=== PATIENT | female | born 1985 | race Caucasian/White ===

== ENCOUNTER 2023-01-07 08:02 | Outpatient (CLI) | payer OTHER, SELFPAY ==
[2023-01-07 13:06] LABS: Cholesterol* 133 mg/dL (90-199); Glucose* 86 mg/dL (60-115); Triglycerides* 108 mg/dL (40-149)
[2023-01-07 13:07] LABS: HDL Cholesterol* 77 mg/dL (>=50); LDL Cholesterol Calculated 34 mg/dL (<100)
== END 2023-01-07 08:03 | disposition home or self-care (01) ==
LOC: LKVREF 08:03
PROVIDERS: PCP Family Medicine; Visit Provider Physician Assistant
DX: Z13.6 Encounter for screening for cardiovascular disorders (principal); Z13.1 Encounter for screening for diabetes mellitus
CPT/HCPCS: 80061; 82947

== ENCOUNTER 2024-01-22 22:44 | Outpatient (REF) | payer OTHER, SELFPAY ==
[2024-01-23 02:27] LABS: Cholesterol* 163 mg/dL (90-199); Iron* 114 ug/dL (37-170); Magnesium* 2.1 mg/dL (1.5-2.6); Triglycerides* 129 mg/dL (40-149)
[2024-01-23 02:28] LABS: HDL Cholesterol* 99 mg/dL (>=50); LDL Cholesterol Calculated 38 mg/dL (<100)
[2024-01-23 02:45] LABS: Vitamin D 25 Hydroxy* 68 ng/mL (30-80)
[2024-01-23 02:46] LABS: Free T4 Free Thyroxine* 1.07 ng/dL (0.70-1.85)
[2024-01-23 03:04] LABS: Ferritin* 18.3 ng/mL (6.24-137.0)
[2024-01-23 03:18] LABS: Vitamin B12* 476 pg/mL (243-894)
[2024-01-25 11:37] LABS: Zinc, Serum/Plasma 77.8 ug/dL (60.0-120.0)
== END 2024-01-22 22:45 | disposition home or self-care (01) ==
LOC: NPINS 22:44
PROVIDERS: PCP Family Medicine; Visit Provider Nurse Practitioner Psychiatric/Mental Health
DX: Z00.00 Encounter for general adult medical examination without abnormal findings (principal); F33.9 Major depressive disorder, recurrent, unspecified; F41.1 Generalized anxiety disorder; Z13.29 Encounter for screening for other suspected endocrine disorder
CPT/HCPCS: 80061; 82306; 82607; 82728; 82746; 83036; 83540; 83735; 84439; 84443; 84630